=== PATIENT | female | born 1990 | race Two or more races ===

== ENCOUNTER 2019-01-19 10:11 | Outpatient (CLI) | payer OTHER | END 2019-01-19 10:22 | disposition home or self-care (01) | LOC: SONOGRAMA 10:11 → MAMO-SONO 10:15 → SONOGRAMA 10:22 | DX: N84.0 Polyp of corpus uteri (principal) ==

== ENCOUNTER 2019-06-10 05:13 | Day surgery (SDC) | payer OTHER ==
[2019-06-10] MEDS ORDERED: Tylenol #3 PO (08:30)
[2019-06-10] MEDS ORDERED: MONDOXYNE NL100 MG PO (08:30)
== END 2019-06-10 14:10 | disposition home or self-care (01) ==
LOC: CIR.AMB 05:13
DX: D25.0 Submucous leiomyoma of uterus (principal); N84.0 Polyp of corpus uteri; N84.1 Polyp of cervix uteri